=== PATIENT | male | born 1985 | race Caucasian/White ===

== ENCOUNTER 2022-02-27 15:52 | Emergency (ER) | payer BC ==
[~2022-02-27] VITALS: Ht 175.3 cm; Wt 77.1 kg
[2022-02-27 16:00] VITALS: BP_SYST 123
[2022-02-27] MEDS ORDERED: KETOROLAC TROMETHAMINE 30 MG VIAL IM ONE (17:00)
[2022-02-27] MEDS ORDERED: ONDANSETRON 4 MG ODT TAB PO ONE (17:00)
--- NOTE | 2022-02-27 17:04 | NUR ---
COVID AND FLU SWAB COLLECTED
[2022-02-27] MEDS ORDERED: ONDA-8 TL (18:39)
[2022-02-27] MEDS ORDERED: KETOROLAC TROMETHAMINE 30 MG VIAL ONE (20:20)
[2022-02-27] MEDS ORDERED: ONDANSETRON 4 MG ODT TAB ONE (20:20)
--- NOTE | 2022-02-27 20:29 | NUR ---
Patient AAo x 4 wth complains of mild to moderate abdominal pain, non radiating, 8/10 PS with episodes of nausea, vomiting, diarrhea since yesterday. Patient reports he might have food poisoning. Patient able to tolerate food at this time but still +nausea. Patient breathing easy, not in any distress. Vital signs within normal level. Patient is for discharge.
--- NOTE | 2022-02-27 20:30 | NUR ---
1611- patient seen by Dr Connelly as documented by him
[2022-02-27 20:40] VITALS: BP_SYST 122
--- NOTE | 2022-02-27 20:40 | NUR ---
Patient given written and verbal discharge instructions and verbalizes understanding. ER MD discussed with patient the results and treatment provided. Patient in stable condition. Rx of Zofran ODT was sent to pharmacy of choice by ER MD. Patient educated on pain management and to follow up with PMD. Opportunity for questions provided and answered.
== END 2022-02-27 20:40 | disposition home or self-care (01) ==
LOC: SED 15:52
DX: K52.9 Noninfective gastroenteritis and colitis, unspecified (principal); R10.9 Unspecified abdominal pain; R11.2 Nausea with vomiting, unspecified; Z79.899 Other long term (current) drug therapy; Z20.822 Contact with and (suspected) exposure to COVID-19
CPT/HCPCS: 99283; 87426; 36415; 96372; 87804 ×2; Q0162; J1885

== ENCOUNTER 2022-04-21 12:04 | Emergency (ER) | payer BC ==
[~2022-04-21] VITALS: Ht 175.3 cm; Wt 79.4 kg
[~2022-04-21 12:04] MED LIST: ONDA-8 TL
[2022-04-21 12:10] VITALS: BP_SYST 119
--- NOTE | 2022-04-21 12:19 | NUR ---
PT CAME IN FROM HOME, STATES HE WAS TAKING A SHOWER AND SUDDENLY WAS BLEEING FROM HIS RIGHT SCROTUM. DENIES SHAVING OR INJURY. PT IS AMBULATORY, AAOX4, VSS
--- NOTE | 2022-04-21 12:19 | NUR ---
Patient to ER bed 06 to gown for evaluation. Side rails up.
--- NOTE | 2022-04-21 12:22 | NUR ---
Dr. Palacio at bedside to assess pt.
[2022-04-21 13:24] VITALS: BP_SYST 116
--- NOTE | 2022-04-21 13:28 | NUR ---
Patient given written and verbal discharge instructions and verbalizes understanding. ER MD discussed with patient the results and treatment provided. Patient in stable condition. ID arm band removed. Patient educated on pain management and to follow up with PMD. Pain Scale 0/10. Opportunity for questions provided and answered. Medication side effect fact sheet provided.
== END 2022-04-21 13:24 | disposition home or self-care (01) ==
LOC: SED 12:04
DX: N50.1 Vascular disorders of male genital organs (principal); Z79.899 Other long term (current) drug therapy
CPT/HCPCS: 99281; 99282

== ENCOUNTER 2022-11-18 21:10 | Emergency (ER) | payer BC ==
[~2022-11-18] VITALS: Ht 175.3 cm; Wt 79.4 kg
[2022-11-18 21:12] VITALS: BP_SYST 140; PULSE 99; RESP 20; TEMP 97.4; O2SAT 98
[2022-11-18 22:40] LABS: BASOPHILS % (AUTO) 0.5 % (0.0-2.0); EOSINOPHILS # (AUTO) 0.1 K/uL (0.0-0.4); EOSINOPHILS % (AUTO) 0.6 % (0.0-4.0); HEMATOCRIT 44.5 % (36-54); HEMOGLOBIN 15.1 g/dL (14.0-18.0); LYMPHOCYTES # (AUTO) 1.1 K/uL (1.0-5.5); LYMPHOCYTES % (AUTO) 13.2 % (20.5-51.5); MEAN CORPUSCULAR HEMOGLOBIN 31 pg (27-31); MEAN CORPUSCULAR HGB CONC 34 % (32-36); MEAN CORPUSCULAR VOLUME 90 fL (79.0-98.0); MONOCYTES # (AUTO) 0.9 K/uL (0.0-1.0); MONOCYTES % (AUTO) 10.1 % (1.7-9.3); NEUTROPHILS # (AUTO) 6.4 K/uL (1.8-7.7); NEUTROPHILS % (AUTO) 75.6 % (40.0-70.0); PLATELET COUNT (AUTO) 214 K/uL (130-430); RED BLOOD CELL COUNT(AUTO) 4.96 MIL/uL (4.2-6.2); RED CELL DISTRIBUTION WIDTH 12.9 % (9.0-15.0); WHITE BLOOD COUNT (AUTO) 8.5 K/uL (4.8-10.8)
[2022-11-18 22:50] LABS: ANION GAP 9 (5-15); CALCIUM 8.8 mg/dL (8.4-11.0); CARBON DIOXIDE 27 mmol/L (23-29); CHLORIDE 103 mmol/L (98-107); GFR AFRICAN AMERICAN 88 mL/min (>90); GLUCOSE 110 mg/dL (74-106); POTASSIUM 3.7 mmol/L (3.5-5.1); SODIUM SERUM 139 mmol/L (136-145); UREA NITROGEN, BLOOD 18 mg/dL (8-21)
[2022-11-18 23:02] LABS: GFR NON AFRICAN-AMERICAN 72 mL/min (>90)
[2022-11-18 23:03] LABS: ALANINE AMINOTRANSFERASE 24 U/L (12-78); ALBUMIN 4.1 g/dL (3.4-4.8); ASPARTATE AMINOTRANSFERASE 28 U/L (10-37); TOTAL BILIRUBIN 0.4 mg/dL (0.0-1.0); TOTAL PROTEIN, SERUM 7.3 g/dL (6.4-8.3)
[2022-11-18 23:06] VITALS: BP_SYST 140; PULSE 99; RESP 20; TEMP 97.4; O2SAT 98
== END 2022-11-18 23:06 | disposition home or self-care (01) ==
LOC: SED 21:10
DX: M94.0 Chondrocostal junction syndrome [Tietze] (principal); R07.89 Other chest pain; Z79.899 Other long term (current) drug therapy
CPT/HCPCS: 36415; 71045; 80053; 84484; 85025; 93005; 99285